=== PATIENT | female | born 1970 ===

== ENCOUNTER 2019-09-16 06:00 | Day surgery (SDC) | payer OTHER | END 2019-09-16 12:50 | disposition home or self-care (01) | LOC: CIR.AMB 06:00 → ADM 10:00 → CIR.AMB 12:50 | PROVIDERS: ATTEND Orthopaedic Surgery | DX: M75.111 Incomplete rotator cuff tear or rupture of right shoulder, not specified as traumatic (principal); M75.41 Impingement syndrome of right shoulder; M75.01 Adhesive capsulitis of right shoulder ==

== ENCOUNTER 2020-08-29 14:38 | Outpatient (CLI) | payer OTHER | END 2020-08-29 14:58 | disposition home or self-care (01) | LOC: SONOGRAMA 14:38 | PROVIDERS: ATTEND Obstetrics & Gynecology | DX: N63.11 Unspecified lump in the right breast, upper outer quadrant (principal); R59.0 Localized enlarged lymph nodes; Z80.3 Family history of malignant neoplasm of breast; E06.3 Autoimmune thyroiditis ==